=== PATIENT | female | born 1970 | race Caucasian/White ===

== ENCOUNTER 2016-11-19 08:43 | Emergency (ER) | payer MEDICARE, OTHER ==
[~2016-11-19] VITALS: Ht 154.9 cm; Wt 43.3 kg
[2016-11-19] MEDS ORDERED: PROGESTERONE PO (09:08)
[2016-11-19] MEDS ORDERED: SPIR100T3 PO (09:08)
[2016-11-19] MEDS ORDERED: PROG100C6 PO (09:08)
[2016-11-19] MEDS ORDERED: BUSP15TA3 PO (09:08)
[2016-11-19] MEDS ORDERED: PREN1TAB81 PO (09:08)
[2016-11-19] MEDS ORDERED: PRAS1TAB4 PO (09:08)
[2016-11-19 09:15] LABS: *BILIRUBIN,URIN NEGATIVE (NEGATIVE); *BLOOD, URINE 2+ (NEGATIVE); *CLARITY,URINE CLOUDY (CLEAR); *COLOR,URINE YELLOW (YELLOW); *KETONES,URINE TRACE (NEGATIVE); *PROTEIN,URINE TRACE (NEGATIVE); *UROBILINOGEN,URINE 0.2 E.U./dl (NORMAL); LEUKOCYTE ESTERASE ,URINE 3+ (NEGATIVE); NITRITE, URINE NEGATIVE (NEGATIVE); PH,URINE 5.5 (5.0-8.0); UGLUCOSE NEGATIVE (NEGATIVE)
[2016-11-19 09:23] LABS: BACTERIA,URINE MODERATE /HPF (NONE SEEN); MUCUS,URINE FEW /LPF (0-FEW); RBC,URINE 20-50 /HPF (0-3); SQUAMOUS EPITHELIAL CELL,UR MODERATE /HPF (NONE SEEN); WBC,URINE 50-80 /HPF (0-3)
[2016-11-19] MEDS ORDERED: PHENAZOPYRIDINE HCL 100 MG TABLET PO ONE (09:45)
[2016-11-19] MEDS ORDERED: SULFAMETH/TRIMETH 800/160 MG TABLET PO ONE (09:45)
--- NOTE | 2016-11-19 09:45 | NUR ---
MSE COMPLETED, MEDS GIVEN, PT D/C'D HOME WITH ACI/RX X2. PT AMBULATED W/O DIFF/TOOK ALL BELONGINGS.
[2016-11-19 09:47] VITALS: BP 115/72
[2016-11-19] MEDS ORDERED: PHENAZOPYRIDINE HCL 100 MG TABLET ONE (09:52)
[2016-11-19] MEDS ORDERED: SULFAMETH/TRIMETH 800/160 MG TABLET ONE (09:53)
== END 2016-11-19 09:48 | disposition home or self-care (01) ==
LOC: ER 08:43
DX: N39.0 Urinary tract infection, site not specified (principal); F32.9 Major depressive disorder, single episode, unspecified; Z88.1 Allergy status to other antibiotic agents
CPT/HCPCS: A4663